=== PATIENT | female | born 1950 | race Asian ===

== ENCOUNTER → 2017-12-07 | Outpatient (CLI) | payer MEDICAID, MEDICARE | END | disposition home or self-care (01) | LOC: CFH 12:06 | PROVIDERS: ATTEND Internal Medicine Gastroenterology | DX: B19.10 Unspecified viral hepatitis B without hepatic coma (principal); Z86.010 Personal history of colon polyps; Z90.49 Acquired absence of other specified parts of digestive tract | CPT/HCPCS: 76705 ==

== ENCOUNTER → 2018-04-11 | Outpatient (CLI) | payer MEDICAID, MEDICARE ==
[~2018-04-11] MED LIST: OMNIPAQUE 350 MG/ML, 75ML BOTTLE ONE
== END | disposition home or self-care (01) ==
LOC: CFH 08:50
PROVIDERS: ATTEND Family Medicine
DX: R05 Cough (principal); M47.814 Spondylosis without myelopathy or radiculopathy, thoracic region; K76.0 Fatty (change of) liver, not elsewhere classified; E04.2 Nontoxic multinodular goiter; Z90.49 Acquired absence of other specified parts of digestive tract
CPT/HCPCS: 71260; Q9967

== ENCOUNTER 2018-10-16 10:21 | Outpatient (CLI) | payer OTHER, MEDICARE | END 2018-10-16 23:59 | disposition home or self-care (01) | LOC: CFH 10:21 | PROVIDERS: ATTEND Student in an Organized Health Care Education/Training Program | DX: M25.511 Pain in right shoulder (principal) ==

== ENCOUNTER → 2020-10-25 | Outpatient (CLI) | payer OTHER, MEDICARE | END | disposition home or self-care (01) | LOC: RAD 10:21 | PROVIDERS: ATTEND Internal Medicine Gastroenterology | DX: K86.89 Other specified diseases of pancreas (principal); N85.4 Malposition of uterus; B18.1 Chronic viral hepatitis B without delta-agent; R11.0 Nausea; R10.31 Right lower quadrant pain; K30 Functional dyspepsia; Z90.49 Acquired absence of other specified parts of digestive tract | CPT/HCPCS: 76705; 76856 ==